=== PATIENT | male | born 1995 | race African-American/Black ===

== ENCOUNTER 2018-08-16 08:42 | Day surgery (SDC) | payer BC ==
[~2018-08-16 08:42] MED LIST: LIDOCAINE 2% (SDV) 5 ML INJ; PROPOFOL 200 MG INJ; ROCURONIUM 50 MG INJ; SEVOFLURANE 15 MIN; SUCCINYLCHOLINE CHLORIDE 100 MG/5 ML SYG IV
[2018-08-16] MEDS ORDERED: ROPIVACAINE 0.5 % 30 ML VIAL ×2 (10:48→10:50)
[2018-08-16] MEDS ORDERED: POVIDONE IODINE 10% 28.4 GM OINT (10:48)
[2018-08-16] MEDS ORDERED: FENTAnyl 50 MCG/ML VIAL (10:50)
[2018-08-16] MEDS ORDERED: MIDAZOLAM 1 MG/ML 2 ML INJ (10:50)
[2018-08-16] MEDS ORDERED: DEXAMETHASONE 4 MG/ML 5 ML INJ (11:22)
[2018-08-16] MEDS ORDERED: FAMOTIDINE 20 MG INJ (11:22)
[2018-08-16] MEDS ORDERED: ONDANSETRON 4 MG INJ (11:22)
[2018-08-16] MEDS ORDERED: CEFAZOLIN 1 GM INJ ×2 (11:22→13:34)
[2018-08-16] MEDS ORDERED: HYDROmorphONE 2 MG/ML SYG (13:14)
[2018-08-16] MEDS ORDERED: SOD CHLORIDE 0.9% 1,000 ML IV (13:23)
[2018-08-16] MEDS ORDERED: ONDANSETRON 4 MG INJ IV (13:30)
[2018-08-16] MEDS ORDERED: OXYCODONE/ACETAMINOPHEN (5/325) TAB PO (13:30)
[2018-08-16] MEDS ORDERED: morphine 2 MG INJ IV (13:30)
[2018-08-16] MEDS ORDERED: NEOSTIGMINE 3 MG/3 ML SYRINGE (13:39)
[2018-08-16] MEDS ORDERED: GLYCOPYRROLATE 0.4 MG INJ (13:39)
[2018-08-16] MEDS: OXYCODONE/ACETAMINOPHEN (5/325) TAB PO (16:00)
== END 2018-08-16 16:27 | disposition home or self-care (01) ==
LOC: SDS 08:42
DX: M93.272 Osteochondritis dissecans, left ankle and joints of left foot (principal); S82.292K Other fracture of shaft of left tibia, subsequent encounter for closed fracture with nonunion; X58.XXXD Exposure to other specified factors, subsequent encounter
CPT/HCPCS: 29891; 73610